=== PATIENT | female | born 1955 | race Caucasian/White ===

== ENCOUNTER → 2016-09-09 | Outpatient (REF) ==
[~2016-09-09] MED LIST: ASPI325T6 PO; ASPIR-LOW81 MG PO; ASPIRIN 32325 MG/TAB PO; ASPIRIN E.C. 8181 MG PO; BACTRIM DS 8001 TAB PO; CARDIZEM 60MG T60 MG PO; CELEBREX 200MG200 MG PO; FOLIC ACID 40400 MCG PO; IRON TABLETS325 MG PO; LOPRESSOR 225 MG/TAB PO; METOPROLOL TART50 MG PO; MULTAQ PO; MULTAQ400 MG PO; NORCO 325 MG-7.1 TAB PO; PRILOSEC 20MG20 MG PO; SOTALOL PO; SYNTHROID0.075 MG/T PO; TYLENOL 500MG500 MG PO; VITAMINC1000TA PO; ZOCOR 40MG40 MG PO; ZOCOR40 MG PO
== END ==
LOC: ZLAB.WCH 16:12
DX: Z01.89 Encounter for other specified special examinations (principal)

== ENCOUNTER → 2016-12-02 | Outpatient (REF) ==
[2016-12-02 10:56] LABS: THYROID STIMULATING HORMONE 0.643 uIU/mL (0.465-4.680)
== END ==
LOC: ZLAB.WCH 10:14
PROVIDERS: Internal Medicine
DX: Z01.89 Encounter for other specified special examinations (principal)

== ENCOUNTER 2018-12-26 22:19 | Emergency (ER) | payer OTHER ==
[~2018-12-26] VITALS: Ht 175.3 cm; Wt 70.5 kg
[2018-12-26 22:25] VITALS: TEMP 98
[2018-12-26 22:34] LABS: HEMATOCRIT 47.4 % (37.0-47.0); HEMOGLOBIN 15.9 g/dl (12.5-16.0); MEAN CELL VOLUME 91 fl (80.0-100.0); MEAN CORPUSCULAR HEMOGLOBIN 31 pg (27.0-31.0); MEAN CORPUSCULAR HGB CONC 34 g/dl (33.0-37.0); MEAN PLATELET VOLUME 9.7 fl (7.4-10.4); PLATELET COUNT 275 K/mm3 (130-400); RED BLOOD COUNT 5.21 M/mm3 (4.10-5.30); REDCELL DISTRIBUTION WIDTH-CV 13.4 % (11.5-14.5)
[2018-12-26 22:40] LABS: INR 0.8 (0.8-3.0); PROTHROMBIN TIME 9.7 SECONDS (9.7-12.8)
[2018-12-26 22:43] LABS: PARTIAL THROMBOPLASTIN TIME 27.5 SECONDS (26.0-37.0)
[2018-12-26 22:46] LABS: ALANINE AMINOTRANSFERASE 30 U/L (9-52); ALBUMIN 4.6 gm/dL (3.5-5.0); ALKALINE PHOSPHATASE 71 U/L (50-136); ANION GAP 14 mmol/L (7-16); AST,SGOT 40 U/L (15-37); BILIRUBIN,TOTAL 0.5 mg/dL (0.0-1.0); BLOOD UREA NITROGEN 16 mg/dL (7-17); CALCIUM 11.2 mg/dL (8.4-10.2); CARBON DIOXIDE 23 mmol/L (22-30); CHLORIDE 103 mmol/L (98-107); CREATININE, serum 0.62 (0.52-1.25); GLUCOSE 130 mg/dL (74-106); POTASSIUM 3.6 mmol/L (3.4-5.0); SODIUM 141 mmol/L (137-145); TOTAL PROTEIN 7.6 gm/dL (6.4-8.2)
[2018-12-26 22:59] LABS: TROPONIN-I < 0.012 ng/mL (0.000-0.035)
[2018-12-26 23:02] LABS: BAND 2 % (0-10); EOSINOPHIL 1 % (0-4); LYMPHOCYTE 27 % (20.0-51.0); NEUTROPHILS 63 % (42.0-75.2); PLATELET ESTIMATE NORMAL (NORMAL)
[2018-12-26 23:25] LABS: MAGNESIUM 1.9 mg/dL (1.6-2.3)
[2018-12-27 00:42] VITALS: BP 100/79; PULSE 118
== END 2018-12-27 00:42 | disposition short-term general hospital (02) ==
LOC: COL.ER 22:19
PROVIDERS: Emergency Medicine; Family Medicine
DX: I48.2 Chronic atrial fibrillation (principal); F17.210 Nicotine dependence, cigarettes, uncomplicated; Z90.710 Acquired absence of both cervix and uterus
CPT/HCPCS: J1650; J7030

== ENCOUNTER → 2019-03-19 | Outpatient (CLI) | payer OTHER | LOC: COL.PUL 08:00 | DX: R06.02 Shortness of breath (principal); R09.02 Hypoxemia; Z87.891 Personal history of nicotine dependence ==